=== PATIENT | female | born 1980 | race Caucasian/White ===

== ENCOUNTER → 2016-08-25 | Outpatient (CLI) | payer OTHER ==
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
== END ==
LOC: XR SRH 16:32
DX: M54.5 Low back pain (principal); M25.551 Pain in right hip